=== PATIENT | male | born 1990 | race Caucasian/White ===

== ENCOUNTER 2016-08-10 14:26 | Inpatient (IN) | payer MEDICAID ==
[~2016-08-10] VITALS: Ht 180.3 cm; Wt 71.5 kg
[2016-08-10] MEDS ORDERED: VENL-193 PO (16:46)
[2016-08-10] MEDS ORDERED: TOPI25 PO (16:46)
[2016-08-10] MEDS ORDERED: OLAN7.5T2 PO (16:46)
[2016-08-10] MEDS ORDERED: HYDR-4031 PO (16:46)
[2016-08-10 17:19] LABS: BASOPHILS % (AUTO) 0.5 % (0.0-2.0); EOSINOPHILS % (AUTO) 1.4 % (1.0-6.0); HEMATOCRIT 47.6 % (41-53); HEMOGLOBIN 15.6 g/dL (13.5-17.5); LYMPHOCYTES # (AUTO) 1.7 K/uL (1.0-4.8); LYMPHOCYTES % (AUTO) 12.2 % (22.0-44.0); MEAN CORPUSCULAR HEMOGLOBIN 29.8 pg (26.0-34.0); MEAN CORPUSCULAR HGB CONC 32.8 G/dL (31.0-37.0); MEAN CORPUSCULAR VOLUME 91 fL (80-100); MONOCYTES # (AUTO) 0.9 K/uL (0.1-1.0); MONOCYTES % (AUTO) 6.2 % (2.0-9.0); NEUTROPHILS # (AUTO) 11.3 K/uL (1.8-7.7); NEUTROPHILS % (AUTO) 79.7 % (40.0-70.0); PLATELET COUNT (AUTO) 337 K/uL (150-450); RED BLOOD CELL COUNT(AUTO) 5.24 MIL/uL (4.50-5.90); RED CELL DISTRIBUTION WIDTH 13.7 % (11.5-14.5); WHITE BLOOD COUNT (AUTO) 14.2 K/uL (4.5-11.0)
[2016-08-10 17:27] LABS: ANION GAP 15 mmol/L (8-16); CALCIUM, TOTAL 8.6 mg/dL (8.8-10.5); CARBON DIOXIDE 23 mmol/L (22-29); CHLORIDE 102 mmol/L (98-107); CREATININE 1.06 mg/dL (0.60-1.30); GLOMERULAR FILTR. RATE CALC > 60 mL/min (>60); SODIUM SERUM 140 mmol/L (136-145); UREA NITROGEN, BLOOD 11 mg/dL (7-18)
[2016-08-10 17:34] LABS: ALANINE AMINOTRANSFERASE 27 U/L (12-78); ALBUMIN 4.3 g/dL (3.4-5.0); ASPARTATE AMINOTRANSFERASE 29 U/L (15-37); BILIRUBIN,TOTAL 0.4 mg/dL (0.1-1.0); TOTAL PROTEIN, SERUM 7.9 g/dL (6.4-8.2)
[2016-08-10] MEDS ORDERED: ZOLPIDEM TARTRATE 10 MG TABLET PO PRN (18:15)
[2016-08-10] MEDS ORDERED: HALOPERIDOL 5 MG TABLET PO PRN (18:15)
[2016-08-10] MEDS: OLANZapine 5 MG TABLET PO SCH (20:51)
[2016-08-10 21:05] VITALS: BP 123/82
[2016-08-11 08:30] VITALS: BP 140/88
[2016-08-11] MEDS: FLUoxetine HCL 20 MG CAPSULE PO SCH (09:06)
[2016-08-11] MEDS ORDERED: ACETAMINOPHEN 325 MG TABLET PO PRN (09:15)
[2016-08-11] MEDS ORDERED: IBUPROFEN 400 MG TABLET PO PRN (09:15)
[2016-08-11] MEDS: LORazepam 2 MG TABLET PO PRN ×2 (11:14→17:57)
[2016-08-11 16:51] VITALS: BP 118/70
[2016-08-11] MEDS: OLANZapine 5 MG TABLET PO SCH (20:09)
[2016-08-12 08:50] VITALS: BP 138/76
[2016-08-12] MEDS: FLUoxetine HCL 20 MG CAPSULE PO SCH (09:44)
[2016-08-12 13:09] LABS: ADD UA MICROSCOPIC NO; APPEARANCE,URINE CLEAR (CLEAR); GLUCOSE, URINE (UA) NEGATIVE (NEGATIVE); KETONES,URINE NEGATIVE (NEGATIVE); LEUKOCYTE ESTERASE ,URINE NEGATIVE (NEGATIVE); OCCULT BLOOD,URINE NEGATIVE (NEGATIVE); PROTEIN,URINE NEGATIVE (NEGATIVE)
[2016-08-12] MEDS: BACITRACIN 28.4 GM OINTMENT TP SCH (16:33)
[2016-08-12] MEDS: LORazepam 2 MG TABLET PO PRN (16:34)
[2016-08-12 16:51] VITALS: BP 146/81
[2016-08-12] MEDS: OLANZapine 5 MG TABLET PO SCH (20:05)
[2016-08-12] MEDS ORDERED: FLUO20CA30 PO (22:56)
[2016-08-12] MEDS ORDERED: OLAN5TAB2 PO (22:56)
[2016-08-13] MEDS: FLUoxetine HCL 20 MG CAPSULE PO SCH (09:05)
[2016-08-13] MEDS: BACITRACIN 28.4 GM OINTMENT TP SCH (09:08)
[2016-08-13 09:58] VITALS: BP 112/73
== END 2016-08-13 15:00 | disposition home or self-care (01) | DRG 750 ==
LOC: EMS 14:28 → 3EI 18:29
PROVIDERS: ADMIT Psychiatry & Neurology Psychiatry; ATTEND Psychiatry & Neurology Psychiatry
DX: F25.0 Schizoaffective disorder, bipolar type (principal); R45.851 Suicidal ideations; E83.51 Hypocalcemia; F41.9 Anxiety disorder, unspecified; D72.829 Elevated white blood cell count, unspecified; S51.011A Laceration without foreign body of right elbow, initial encounter; F12.10 Cannabis abuse, uncomplicated; X58.XXXA Exposure to other specified factors, initial encounter; Y93.89 Activity, other specified; Y92.89 Other specified places as the place of occurrence of the external cause; Y99.8 Other external cause status; Z98.890 Other specified postprocedural states; Z79.899 Other long term (current) drug therapy; Z71.51 Drug abuse counseling and surveillance of drug abuser
CPT/HCPCS: 99285; G0480